=== PATIENT | female | born 1980 | race Caucasian/White ===

== ENCOUNTER → 2018-08-12 | Outpatient (REF) | payer BC ==
[2018-08-12 10:52] LABS: PLATELET COUNT, AUTOMATED 384 K/uL (150-450)
== END ==
PROVIDERS: ATTEND Nurse Practitioner Family
DX: R10.9 Unspecified abdominal pain (principal)
CPT/HCPCS: 82040; 82247; 82310; 82374; 82435; 82565; 82947; 84075; 84132; 84155; 84295; 84450; 84460; 84520; 85025

== ENCOUNTER → 2018-08-12 | Outpatient (CLI) | payer BC ==
--- NOTE | 2018-08-12 13:05 | RADIOLOGY IMAGING REPORT ---
FACILITY: [facility] PATIENT NAME: Adriane Haddad : 1980 MR: [id number] V: [id number] EXAM DATE: ORDERING PHYSICIAN: INES BARILLAS TECHNOLOGIST: Location: [facility] Patient: Adriane Haddad : 1980 Visit/Account:[id number] Date of Sevice: 08/12/2018 ABDOMEN/PELVIS W/O CONTRAST HISTORY: Right lower quadrant pain and hematuria x2 days TECHNIQUE: Axial images acquired through the abdomen/pelvis. Coronal and sagittal reformatting also performed. No IV contrast administered. Dose Lowering Technique One of the following dose optimization techniques was utilized in the performance of this exam: Autom ated exposure control; adjustment of the mA and/or kV according to the patient's size; or use of an i terative reconstruction technique. Specific details can be referenced in the facility's radiology C T exam operational policy. COMPARISON: None. FINDINGS: Visualized lung bases: Negative. Hepatobiliary: Negative. Spleen: Negative. Adrenals: Negative. Pancreas: Negative. Kidneys ureters and bladder: There is mild perinephric stranding bilaterally. There is no evidence o f hydronephrosis hydroureter or urolithiasis. The bladder is decompressed not ideally evaluated Genitalia: Uterus is retroverted. Small calcination identified right-sided uterine fundus GI: There is no evidence of bowel obstruction or bowel wall thickening. The appendix is visualized and does not appear inflamed Vessels/spaces/nodes: Negative. Bones/soft tissues: There is a very small umbilical hernia containing fat. There are mild sclerotic changes at the left SI joint . This could be related to prior trauma or po ssibly arthritic change . Mild spondylotic changes L4-5 Additional findings: None pertinent. IMPRESSION: No evidence of urolithiasis, hydronephrosis or hydroureter The appendix is visualized and does not appear inflamed Additional chronic findings as described above Results were called to INES BARILLAS at 08/12/2018 1:01 PM. Report Dictated By: Virginia Womack MD at 08/12/2018 12:45 PM Report E-Signed By: Virginia Womack MD at 08/12/2018 1:01 PM WSN:[email or web address]
== END ==
LOC: CT 11:53
PROVIDERS: ATTEND Nurse Practitioner Family
DX: K42.9 Umbilical hernia without obstruction or gangrene (principal)
CPT/HCPCS: 74176